=== PATIENT | male | born 1985 | race Caucasian/White ===

== ENCOUNTER 2023-06-25 12:09 | Emergency (ER) | payer BC ==
[~2023-06-25] VITALS: Ht 175.3 cm; Wt 63.3 kg
[2023-06-25 12:16] VITALS: BP 117/94; PULSE 91; RESP 16; TEMP 98.2; O2SAT 97
[2023-06-25] MEDS: LORazepam 1 MG tablet PO ONE (13:23)
== END 2023-06-25 13:55 | disposition home or self-care (01) ==
LOC: ER 12:09
DX: F41.0 Panic disorder [episodic paroxysmal anxiety] (principal); F41.9 Anxiety disorder, unspecified; G47.00 Insomnia, unspecified; Z79.899 Other long term (current) drug therapy
CPT/HCPCS: 82948; 99283